=== PATIENT | female | born 1965 | race Caucasian/White ===

== ENCOUNTER 2016-07-30 06:25 | Day surgery (SDC) | payer OTHER ==
[~2016-07-30] VITALS: Ht 162.6 cm; Wt 64.8 kg
[2016-07-30 07:52] VITALS: Ht 162.6 cm; Wt 64.8 kg
[2016-07-30] MEDS ORDERED: LISINOPRIL (08:03)
[2016-07-30 08:27] VITALS: BP 141/80; PULSE 63; RESP 18
[2016-07-30] MEDS ORDERED: MIDAZOLAM 1 MG/ML 2 ML INJ ONE ×2 (08:56)
[2016-07-30] MEDS ORDERED: FENTAnyl 50 MCG/ML VIAL ONE (08:56)
[2016-07-30 09:30] VITALS: BP 106/67; PULSE 60; RESP 18
--- NOTE | 2016-07-30 10:48 | GILP ---
DATE OF PROCEDURE: 07/30/2016 NAME OF PROCEDURE: Colonoscopy. PREOPERATIVE DIAGNOSIS: Screening colonoscopy to rule out colon polyps. POSTOPERATIVE DIAGNOSES: Minimal external hemorrhoids. Rest of the colon appeared normal. DESCRIPTION OF PROCEDURE: After the informed written consent was obtained, the patient was asked to lie on the left lateral side, total of 4 mg Versed and 50 mcg of fentanyl was given as intravenous anesthesia. When the patient became somnolent, the Olympus video colonoscope was introduced into the rectum and scope was advanced all the way to the cecum. Appendiceal opening and ileocecal valve were identifie d. No polyps noted. No colitis noted. ____ at this time was withdrawn. On the way out, retroflex ion was performed. No internal hemorrhoids were noted. When the scope was withdrawn, minimal exter nal hemorrhoids were noted and the procedure was terminated. PLAN: Recommend colonoscopy in 10 years. Dictated By: AR CAMPOS/LUZ MARINA Conf#: [id number] DID#: [id number] CC: AR GRIMALDO MD; FREDIS STOUT MD;*EndCC*
== END 2016-07-30 09:41 | disposition home or self-care (01) ==
LOC: GIL 06:25
PROVIDERS: ATTEND Internal Medicine Gastroenterology
DX: Z12.11 Encounter for screening for malignant neoplasm of colon (principal); K64.4 Residual hemorrhoidal skin tags; I10 Essential (primary) hypertension
CPT/HCPCS: 45378; J2250; J3010; Z7610

== ENCOUNTER 2018-12-14 14:51 | Observation (INO) | payer OTHER ==
[~2018-12-14] VITALS: Ht 162.6 cm; Wt 64.1 kg
[~2018-12-14 14:51] MED LIST: ASPI-1044 PO; ATOR40TA68 PO; LISINOPRIL
[2018-12-14] MEDS ORDERED: ONDANSETRON 4 MG INJ IV PRN ×2 (15:30→16:30)
[2018-12-14] MEDS ORDERED: ACETAMINOPHEN 325 MG TAB PO PRN ×2 (15:30→16:30)
[2018-12-14] MEDS ORDERED: NACL 0.9% 3 ML SYG IV SCH (16:30)
[2018-12-14 18:47] VITALS: Ht 162.6 cm; Wt 64.1 kg
[2018-12-14 20:57] VITALS: BP 139/71; PULSE 78; RESP 18
[2018-12-15 00:35] VITALS: BP 118/61; PULSE 69; RESP 18
[2018-12-15 04:17] VITALS: BP 113/61; PULSE 75; RESP 16
[2018-12-15 07:40] VITALS: BP 112/65; PULSE 69; RESP 20
[2018-12-15] MEDS ORDERED: ASPIRIN (EC) 81 MG TAB PO SCH (09:00)
[2018-12-15] MEDS ORDERED: ENOXAPARIN 40 MG/0.4 ML SYG SC SCH (09:00)
[2018-12-15 10:54] VITALS: BP 108/64; PULSE 80; RESP 20
[2018-12-15] MEDS ORDERED: ATORVASTATIN 40 MG TAB PO SCH (21:00)
== END 2018-12-15 16:23 | disposition home or self-care (01) ==
LOC: E/R 14:51 → TEL 16:41
PROVIDERS: ADMIT Internal Medicine; ATTEND Internal Medicine
DX: R20.0 Anesthesia of skin (principal); M79.602 Pain in left arm; I10 Essential (primary) hypertension; E78.5 Hyperlipidemia, unspecified; Z86.73 Personal history of transient ischemic attack (TIA), and cerebral infarction without residual deficits
CPT/HCPCS: 70551; 80048; 80061; 80307; 81001; 83036; 83735; 84100; 84484; 84703; 85025; 85610; 85730; 87081; 92610; 93306; J1650; Z7500; Z7502; Z7610; G0378